=== PATIENT | male | born 1945 | race Two or more races ===

== ENCOUNTER 2024-08-25 19:53 | Emergency (ER) | payer OTHER ==
[~2024-08-25] VITALS: Ht 180.3 cm; Wt 85.0 kg
[2024-08-25] MEDS: ONDANSETRON HCL 4 MG/2 ML VIAL IV ONE (20:24)
[2024-08-25 20:27] VITALS: TEMP 98.7; O2SAT 98
--- NOTE | 2024-08-25 20:28 | ED.PDOC ---
GI ASSESSMENT HPI Comments 78 y.o male with a PMHx of AFIB and HTN, presents to the ED for an evaluation fo abdominal tenderness associated with a ventral hernia s/p eating dinner tonight. Patient reports tenderness, worse on palpation and is firm rating a 8/10 on the pain scale. Patient reports 10 year history of an abdominal wall hernia which is reducible but states today was unable to reduce it. Patient denies any nausea, vomiting, diarrhea, fever, chills, or previous hernia repairs. Chief Complaint: Abdominal Pain Time Seen by MD: 20:15 Reviewed Notes: Nurses Notes, Medications, Allergies Allergies: Coded Allergies: NO KNOWN ALLERGIES (Unverified , 08/25/24) Information Source: Patient Mode of Arrival: Wheelchair Timing: Hours Duration: Since onset Quality: Aching Vomitus: None Stool: Normal Severity: Moderate Recent: None Recent Hx of: None Pain Location: Periumbilical Modifying Factors: Nothing Associated sign and symptoms: Abdominal Pain Past Medical History PAST MEDICAL HISTORY: AFIB, HTN Past Medical History (Other): Abdominal wall hernia Surgical History: Denies all surgeries Family History Family History: Reviewed,noncontributory to illness Social History Smoker: Non-Smoker Alcohol: Denies ETOH Use Drugs: Denies Drug Use Lives In: Home Constitutional: denies: chills, diaphoresis, fatigue, fever, malaise, sweats, weakness, others EENTM: denies: blurred vision, double vision, ear bleeding, ear discharge, ear drainage, ear pain, ear ringing, eye pain, eye redness, hearing loss, mouth pain, mouth swelling, nasal discharge, nose bleeding, nose congestion, nose pain, photophobia, tearing, throat pain, throat swelling, voice changes, others Respiratory: denies: cough, hemoptysis, orthopnea, SOB at rest, shortness of breath, SOB with excertion, stridor, wheezing, others Cardiovascular: denies: chest pain, dizzy spells, diaphoresis, Dyspnea on exertion, edema, irregular heart beat, left arm pain, lightheadedness, palpitations, PND, syncope, others Gastrointestinal: reports: abdominal pain; denies: abdomen distended, blood streaked bowels, constipated, diarrhea, dysphagia, difficulty swallowing, hematemesis, melena, nausea, poor appetite, poor fluid intake, rectal bleeding, rectal pain, vomiting, others Genitourinary: denies: burning, dysuria, flank pain, frequency, hematuria, incontinence, penile discharge, penile sore, pain, testicle pain, testicle swelling, urgency, others Neurological: denies: dizziness, fainting, headache, left sided numbness, left sided weakness, numbness, paresthesia, pre-existing deficit, right sided numbness, right sided weakness, seizure, speech problems, tingling, tremors, weakness, others Musculoskeletal: denies: back pain, gout, joint pain, joint swelling, muscle pain, muscle stiffness, neck pain, others Integumetry: denies: bruises, change in color, change in hair/nails, dryness, laceration, lesions, lumps, rash, wounds, others Allergic/Immunocompromised: denies: Difficulty Healing, Frequent Infections, Hives, Itching, others Hematologic/Lymphatic: denies: anemia, blood clots, easy bleeding, easy bruising, swollen glands, others Endocrine: denies: excessive hunger, excessive sweating, excessive thirst, excessive urination, flushing, intolerance to cold, intolerance to heat, unexplained weight gain, unexplained weight loss, others Psychiatric: denies: anxiety, bipolar disorder, depression, hopeless, panic disorder, schizophrenia, sleepless, suicidal, others All Other Systems: Reviewed and Negative Physical Exam General Appearance: Mild Distress HEENT: Normal ENT Inspection, Pharynx Normal, TMs Normal Neck: Full Range of Motion, Non-Tender, Normal, Normal Inspection Respiratory: Chest Non-Tender, Lungs Clear, No Accessory Muscle Use, No Respiratory Distress, Normal Breath Sounds Cardiovascular: No Edema, No JVD, No Murmur, No Gallop, Normal Peripheral Pulses, Regular Rate/Rhythm Breast Exam: Deferred Gastrointestinal: Hernia (firm ), Tenderness (Right sided quadrant lateral to the umbilicus. ) Genitalia: Deferred Pelvic: Deferred Rectal: Deferred Extremities: No calf tenderness, Normal capillary refill, Normal inspection, Normal range of motion, Non-tender, No pedal edema Musculoskeletal : Apperance: Normal Neurologic: Alert, unionmelt operator II-XII nml as Tested, No Motor Deficits, Normal Affect, Normal Mood, No Sensory Deficits Cerebellar Function: Normal Reflexes: Normal Skin: Dry, Normal Color, Warm Lymphatic: No Adenopathy Was a procedure done? Was a procedure done?: No Sedation Sedation?: No GI differential Dx Differential Diagnosis: Bowel Obstruction, Gastroenteritis, Hernia, Trauma intraabdominal X-Ray, Labs, Meds, VS Vital Signs Date Time Temp Pulse Resp B/P (MAP) Pulse Ox O2 Delivery O2 Flow Rate FiO2 08/25/24 20:29 89 26 156/86 08/25/24 20:27 98.7 77 17 151/86 (107) 98 98.7 08/25/24 20:07 97.6 77 18 153/92 (112) 77 97.6 Current Medications Medications (Trade) Dose Ordered Sig/Shahzad Route Start Time Stop Time Status Last Admin Ondansetron HCl (Zofran) 4 mg ONCE ONCE IV 08/25/24 20:15 08/25/24 20:16 DC 08/25/24 20:24 Morphine Sulfate 4 mg ONCE ONCE IV 08/25/24 20:15 08/25/24 20:16 DC 08/25/24 20:29 X-Ray, Labs, Meds, VS Comment Patient was given 4 mg of Zofran and 4 mg of morphine. Patient was given ice pack to place on hernia. Approximate 30 minutes after medications and ice pack, hernias reduced without complications. Patient reports good pain relief Time of 1ST Reevaluation: 20:28 Reevaluation 1ST: Unchanged Patient Education/Counseling: Diagnosis, Treatment, Prognosis, Need For Follow Up (Follow up with PCP/general surgery next available appointment) Family Education/Counseling: No Family Present Departure 1 Departure Time of Disposition: 20:47 Impression: Primary Impression: Abdominal wall hernia Disposition: 01 HOME / SELF CARE / HOMELESS Condition: Fair Discharged With: Self Comments Follow up with PCP for general surgery referral. Critical Care Note Critical Care Time?: No Stability Stability form required: No I personally scribed for JEFF FRANCIS ([email or web address]) on 08/25/24 at 20:28. Electronically submitted by Rosalie Portillo ([facility]). JEFF FRANCIS August 25, 2024 20:28
[2024-08-25] MEDS: MORPHINE SULFATE 4 MG/ML SYR/VIAL IV ONE (20:29)
[2024-08-25 20:59] VITALS: BP 118/77; PULSE 81; RESP 16
== END 2024-08-25 21:38 | disposition home or self-care (01) ==
LOC: ER 19:53
DX: K43.9 Ventral hernia without obstruction or gangrene (principal); I48.91 Unspecified atrial fibrillation; I10 Essential (primary) hypertension
CPT/HCPCS: 96374; 96375; 99283; J2270; J2405